=== PATIENT | female | born 2000 | race Caucasian/White ===

== ENCOUNTER 2019-05-09 22:30 | Emergency (ER) | payer SELFPAY ==
[~2019-05-09] VITALS: Ht 162.6 cm; Wt 81.1 kg
[2019-05-09] MEDS ORDERED: PRED-220 PO (22:55)
--- NOTE | 2019-05-09 22:55 | PHYS DOC ---
Adult General Chief Complaint Chief Complaint: ITCHING HPI HPI 19-year-old female presents with itching and rash all over. The patient started to have some minor itching and erythematous rash on her legs this morning around 10 AM, 12 hours ago. It was not severe so she went to work. She now has small erythematous papules on her bilateral lower extremities, abdomen, and back. The itching is much worse so she decided to come in for evaluation. She has had no difficulty swallowing or breathing at any time. Patient has no known allergies. She denies any new exposures. Denies fever or chills. Denies any drug use. Review of Systems Review of Systems Constitutional: Denies fever or chills [] Eyes: Denies change in visual acuity, redness, or eye pain [] HENT: Denies nasal congestion or sore throat [] Respiratory: Denies cough or shortness of breath [] Cardiovascular: No additional information not addressed in HPI [] GI: Denies abdominal pain, nausea, vomiting, bloody stools or diarrhea [] : Denies dysuria or hematuria [] Musculoskeletal: Denies back pain or joint pain [] Integument: Rash[] Neurologic: Denies headache, focal weakness or sensory changes [] Endocrine: Denies polyuria or polydipsia [] All other systems were reviewed and found to be within normal limits, except as documented in this note. Current Medications Current Medications Current Medications Medications (Trade) Dose Ordered Sig/Justus Start Time Stop Time Status Last Admin Dose Admin Diphenhydramine HCl (Benadryl) 50 mg 1X ONCE 05/09/19 23:00 05/09/19 23:01 Methylprednisolone Sodium Succinate (SOLU-Medrol 125MG VIAL) 125 mg 1X ONCE 05/09/19 23:00 05/09/19 23:01 Sodium Chloride 1,000 ml @ 1,000 mls/hr 1X ONCE 05/09/19 23:00 05/09/19 23:59 Allergies Allergies Allergies Coded Allergies Type Severity Reaction Last Updated Verified No Known Drug Allergies 05/09/19 No Physical Exam Physical Exam Constitutional: Well developed, well nourished, no acute distress, non-toxic appearance. [] HENT: Normocephalic, atraumatic, bilateral external ears normal, oropharynx moist, no oral exudates, nose normal. [] Eyes: PERRLA, EOMI, conjunctiva normal, no discharge. [] Neck: Normal range of motion, no tenderness, supple, no stridor. [] Cardiovascular:Heart rate regular rhythm, no murmur [] Lungs & Thorax: Bilateral breath sounds clear to auscultation [] Abdomen: Bowel sounds normal, soft, no tenderness, no masses, no pulsatile masses. [] Skin: Erythematous papules on the bilateral lower extremities, lower abdomen, and lower back with excoriations from scratching. Consistent with allergic reaction.[] Back: No tenderness, no CVA tenderness. [] Extremities: No tenderness, no cyanosis, no clubbing, ROM intact, no edema. [] Neurologic: Alert and oriented X 3, normal motor function, normal sensory function, no focal deficits noted. [] Psychologic: Affect normal, judgement normal, mood normal. [] EKG EKG [] Radiology/Procedures Radiology/Procedures [] Course & Med Decision Making Course & Med Decision Making Pertinent Labs and Imaging studies reviewed. (See chart for details) This appears to be an allergic reaction to something. I have ordered 20 mg of Pepcid IV, 1 L normal saline, 125 mg Solu-Medrol IV, and 50 mg of Benadryl IV. Patient's rash has improved. I will discharge her on 40 mg of prednisone for the next 3 days. She will use Benadryl as needed. She is stable for discharge at this time. [] Dragon Disclaimer Dragon Disclaimer This electronic medical record was generated, in whole or in part, using a voice recognition dictation system. Departure Departure: Impression: Primary Impression: Allergic reaction Disposition: 01 HOME, SELF-CARE Condition: IMPROVED Referrals: [facility] (PCP) Patient Instructions: Allergies, Generic Scripts Prednisone (PREDNISONE) 10 Mg Tablet 40 MG PO DAILY for allergic reaction for 3 Days, #12 TAB Prov: SANTO PERRY DO 05/09/19 SANTO PERRY DO May 09, 2019 22:55
[2019-05-09] MEDS ORDERED: IV NORMAL SALINE 1,000ML 1,000 ML IV ONE (23:00)
[2019-05-09] MEDS ORDERED: methylPREDNISolone SOD SUCC PF 125 MG/2 ML VIAL. IV ONE (23:00)
[2019-05-09] MEDS ORDERED: diphenhydrAMINE 50 MG/ML VIAL IVP ONE (23:00)
[2019-05-09] MEDS ORDERED: FAMOTIDINE 20 MG/2 ML VIAL IVP ONE (23:30)
[2019-05-09 23:56] LABS: BASO % 0 % (0-3); EOS % 1 % (0-3); HEMATOCRIT 38.7 % (36.0-47.0); HEMOGLOBIN 13.5 g/dL (12.0-15.5); LYMPH # 3.1 x10^3/uL (1.0-4.8); LYMPH % 50 % (24-48); MEAN CORPUSCULAR HEMOGLOBIN 31 pg (25-35); MEAN CORPUSCULAR HGB CONC 35 g/dL (31-37); MEAN CORPUSCULAR VOLUME 90 fL (79-100); MONO # 0.5 x10^3/uL (0.0-1.1); MONO % 9 % (0-9); NEUT # 2.6 x10^3uL (1.8-7.7); NEUT % 41 % (31-73); PLATELET COUNT 228 x10^3/uL (140-400); RED CELL DISTRIBUTION WIDTH 12.6 % (11.5-14.5); WHITE BLOOD COUNT 6.3 x10^3/uL (4.0-11.0)
[2019-05-10 00:05] LABS: CALCIUM 8.6 mg/dL (8.5-10.1); CREATININE 0.8 mg/dL (0.6-1.0); GFR 90.5; POTASSIUM 3.7 mmol/L (3.5-5.1)
[2019-05-10 00:12] LABS: ALBUMIN 3.7 g/dL (3.4-5.0); TOTAL BILIRUBIN 0.6 mg/dL (0.2-1.0); TOTAL PROTEIN 7.4 g/dL (6.4-8.2)
[2019-05-10 00:35] VITALS: BP 128/78
== END 2019-05-10 00:44 | disposition home or self-care (01) ==
LOC: ER 22:30
DX: T78.49XA Other allergy, initial encounter (principal); X58.XXXA Exposure to other specified factors, initial encounter
CPT/HCPCS: 36415; 80053; 85025; 96374; 96375; 99284; J1200; J2930; J3490; J7030

== ENCOUNTER 2020-04-03 09:03 | Emergency (ER) | payer OTHER ==
[~2020-04-03] VITALS: Ht 162.6 cm; Wt 90.7 kg
[2020-04-03 09:03] VITALS: BP 134/88
[~2020-04-03 09:03] MED LIST: PRED-220 PO
[2020-04-03] MEDS ORDERED: LIDOCAINE (700MG/PATCH) PATCH. TD ONE (09:49)
[2020-04-03] MEDS ORDERED: HYDR-3165 PO (10:11)
[2020-04-03] MEDS ORDERED: CYCL5TAB PO (10:24)
--- NOTE | 2020-04-03 10:27 | PHYS DOC ---
Past History Past Medical History: No Pertinent History Past Surgical History: No Surgical History Alcohol Use: None Drug Use: None General Adult EDM: Chief Complaint: BACK PAIN OR INJURY HPI: HPI: 20 yo F @ 32 weeks with no PMH, presents to the ed with w/atraumatic low back pain. Pt states she woke up around 5 AM this morning with nausea and dizziness, her typical morning sickness symptoms in , so she took a warm bath for approximately an hour (no antiemetics because they aggrevate her gerd). Upon lifting herself out of the tub she states she "felt a pop" in her sacral area/posterior low back and now has low back pain that radiates down her posterior right thigh, described as sharp in nature. Pain worsens with any movements, worse with hip flexion. No prior back injury or trauma. No associated vaginal bleeding, abdominal pain, saddle anesthesia, urinary or bowel retention or incontinence, sensory deficits or motor weakness. Ob with with OP Darren-Dr. Galaviz, normal care, no diabetes, preclampsia. Review of Systems: Review of Systems: Constitutional: Denies fever or chills Eyes: Denies change in visual acuity HENT: Denies nasal congestion or sore throat Respiratory: Denies cough or shortness of breath Cardiovascular: Denies chest pain or edema GI: Denies abdominal pain, or diarrhea : Denies dysuria, hematuria or vaginal bleeding Musculoskeletal: Denies CVA tenderness or joint pain Integument: Denies rash Neurologic: Denies headache, focal weakness or sensory changes Endocrine: Denies polyuria or polydipsia Lymphatic: Denies swollen glands Psychiatric: Denies depression or anxiety Current Medications: Current Meds: Current Medications Medications (Trade) Dose Ordered Sig/Justus Start Time Stop Time Status Last Admin Dose Admin Lidocaine (Lidoderm) 1 patch 1X ONCE 04/03/20 09:49 04/03/20 09:50 DC 04/03/20 09:59 1 PATCH Miscellaneous (Lidoderm Patch Removal) 1 ea QHS 04/03/20 21:00 Allergies: Allergies: Allergies Coded Allergies Type Severity Reaction Last Updated Verified No Known Drug Allergies 05/09/19 No Physical Exam: PE: Constitutional:, calm/no distress at rest when sitting on edge of stretcher, but seen getting into a wheelchair with significant pain/grimacing HENT: Normocephalic, atraumatic, Eyes: EOMI, conjunctiva normal, no discharge. Neck: Normal range of motion, supple, Cardiovascular: S1/2 present, regular rhythm Lungs & Thorax: Speaking in full sentences, bilateral equal chest rise, no tachypnea or increased work of breathing Abdomen: soft, no tenderness, gravid with fundus well above the umbilicus Skin: Warm, dry, no erythema, no rash. [] Back: Pain not reproduced with palpation but location is over her distal sacrum and coccyx and radiates to her right buttock and down her right thigh, straight leg positive on the right, no CVA tenderness. [] Extremities: No tenderness, no cyanosis, Neurologic: Alert and oriented X 3, normal motor function, normal sensory function, no focal deficits noted. [] Psychologic: Affect normal, judgement normal, mood normal. [] RN reported heart rate of 150 Current Patient Data: Vital Signs: Vital Signs Date Time Temp Pulse Resp B/P (MAP) Pulse Ox O2 Delivery O2 Flow Rate FiO2 04/03/20 09:03 98.6 84 16 134/88 (103) 98 Room Air EKG: EKG: [] Radiology/Procedures: Radiology/Procedures: [] Heart Score: Risk Factors: Risk Factors: DM, Current or recent (<one month) smoker, HTN, HLP, family history of CAD, obesity. Risk Scores: Score 0 - 3: 2.5% MACE over next 6 weeks - Discharge Home Score 4 - 6: 20.3% MACE over next 6 weeks - Admit for Clinical Observation Score 7 - 10: 72.7% MACE over next 6 weeks - Early Invasive Strategies Course & Med Decision Making: Course & Med Decision Making Pertinent Labs and Imaging studies reviewed. (See chart for details) Suspect atraumatic back pain with neuropathy likely sciatica. IM ketamine given in ED for pain. Will DC with drug class B Flexeril. Will discharge home with strict ED return precautions were given for vaginal bleeding, abdominal pain, saddle anesthesia, urinary or bowel retention or incontinence, sensory deficits, worsening/severe pain or motor weakness. Encouraged urgent outpatient follow-up with PMD and PL[employer]ING [employer]ATING MECH[employer]IC. Life-threatening processes were considered but are low suspicion at this time, given history, physical exam and ED workup. Pt was educated on all prescription medications and adverse effects. All patient's questions were answered and pt was stable at time of discharge. Life/limb-threatening differential includes but is not limited to, aortic dissection/aneurysm, cauda equina syndrome, transverse myelitis, spinal cord/epidural compression syndromes, discitis, spinal stenosis, epidural abscess or hematoma, osteomyelitis, disc herniation, surgical abdomen, stable or unstable fracture, renal/ureteral colic, sepsis, demise, placental abruption, uterus rupture, preeclampsia, eclampsia meningitis, musculoskeletal injury, traumatic injury, intraabdominal/retroperitoneal or pelvic bleeding. I spoken with the patient and her caregivers. I explained the patient's condition, diagnoses and treatment plan based on the information available to me at this time. I have answered the patient and her caregiver's questions and addressed any concerns. The patient and her caregivers have a good understanding of patient's diagnosis, condition and treatment plan as can be expected at this point. Vital signs have been stable. Patient's condition is stable and appropriate for discharge from the emergency department. Patient will pursue further outpatient evaluation with primary care physician or other designated or consulting physician as outlined in the discharge instructions. The patient and/or caregivers are agreeable to this plan of care and follow-up instructions have been explained in detail. The patient and/or c aregivers have received these instructions in written form and have expressed an understanding of the discharge instructions. The patient and/or caregivers are aware that any significant change of condition or worsening of symptoms should prompt immediate return to this or the closest emergency department or call to 911. Damian Disclaimer: Damian Disclaimer: This electronic medical record was generated, in whole or in part, using a voice recognition dictation system. Departure Departure: Impression: Primary Impression: Low back pain Additional Impression: Neuropathy of right lower extremity Disposition: 01 DC HOME SELF CARE/HOMELESS Condition: STABLE Referrals: PCP,NO (PCP) FOLLOW UP WITH FAMILY MEDICINE: Complete [facility], [facility] [address] [facility] [address] [place] [address], [facility] Instructions: Back Pain in , Pain, Neuropathic, Sciatica Additional Instructions: FOLLOW UP WITH OBGYN: [facility] [employer] [address], [place] [place] [address] EMERGENCY DEPARTMENT GENERAL DISCHARGE INSTRUCTIONS Thank you for coming to [facility] (ED) today and trusting us with you care. We trust that you had a positivie experience in our Emergency Department. If you wish to speak to the department management, you may call the director at [phone]. YOUR FOLLOW UP INSTRUCTIONS ARE FOLLOWS: 1. Do you have a private Doctor? If you do not have a private doctor, please ask for a resource list of physicians or clinics that may be able to assist you with follow up care. 2. The Emergency Physician has interpreted your x-rays. The X-Ray specialist will also review them. If there is a change in the findings, you will be notified in 48 hours when at all possible. 3. A lab test or culture has been done, your results will be reviewed and you will be notified if you need a change in treatment. ADDITIONAL INSTRUCTIONS AND INFORMATION: 1. Your care today has been supervised by a physician who is specially trained in emergency care. Many problems require more than one evaluation for a complete diagnosis and treatment. We recommend that you schedule your follow up appointment as recommended to ensure complete treatment of you illness or injury. If you are unable to obtain follow up care and continue to have a problem, or if your condition worsens, we recommend that you return to the ED. 2. We are not able to safely determine your condition over the phone nor are we able to give sound medical advice over the phone. For these safety reasons, if you call for medical advice we will ask you to come to the ED for further evaluation. 3. If you have any questions regarding these discharge instructions please call the ED at [phone]. SAFETY INFORMATION: In the interest of safety, wellness, and injury prevention; we encourage you to wear your sealbelt, if you smoke; quite smoking, and we encourage family to use a protective helmet for bicycling and other sporting events that present an increased risk for head injury. IF YOUR SYMPTOMS WORSEN OR NEW SYMPTOMS DEVELOP, OR YOU HAVE CONCERNS ABOUT YOUR CONDITION; OR IF YOUR CONDITION WORSENS WHILE YOU ARE WAITING FOR YOUR FOLLOW UP APPOINTMENT; EITHER CONTACT YOUR PRIMARY CARE DOCTOR, THE PHYSICIAN WHOSE NAME AND NUMBER YOU WERE GIVEN, OR RETURN TO THE ED IMMEDIATELY. Scripts Cyclobenzaprine Hcl (CYCLOBENZAPRINE HCL) 5 Mg Tablet 1 TAB PO TID for pain, #20 TAB Prov: YENI WILLINGHAM DO 04/03/20 [facility] Apr 03, 2020 10:26
[2020-04-03] MEDS ORDERED: KETAMINE HCL IN NACL, ISO-OSM 50 MG/5 ML SYRINGE IM ONE (10:30)
[2020-04-03] MEDS ORDERED: PATCH REMOVAL. MC SCH (21:00)
== END 2020-04-03 11:25 | disposition home or self-care (01) ==
LOC: ER 09:03
DX: O26.893 Other specified pregnancy related conditions, third trimester (principal); M54.5 Low back pain; G57.91 Unspecified mononeuropathy of right lower limb; R42 Dizziness and giddiness; Z3A.32 32 weeks gestation of pregnancy
CPT/HCPCS: 96372; 99283

== ENCOUNTER 2020-05-04 19:11 | Emergency (ER) | payer OTHER ==
[~2020-05-04] VITALS: Ht 162.6 cm; Wt 90.0 kg
[~2020-05-04 19:11] MED LIST changes: +CYCL5TAB PO; +HYDR-3165 PO
[2020-05-04 19:25] VITALS: BP 127/77
--- NOTE | 2020-05-04 20:00 | PHYS DOC ---
Past History Past Medical History: No Pertinent History Past Surgical History: No Surgical History Alcohol Use: None Drug Use: None General Adult EDM: Chief Complaint: VAGINAL PROBLEM HPI: HPI: Patient is a 20-year-old female who presents with vaginal discharge. Patient states she is 37 weeks , estimated due date is on 20 May. Reports that the discharge was clear with no consistency or odor. Patient denies abdominal pain or cramping. Patient has an CLIENT SUCCESS SPECIALIST she sees Dr. Ruiz Galaviz but was unable to reach them tonight. She denies nausea, vomiting, diarrhea. Denies medical history. "My mom told me I should come into the ER in case I was losing amniotic fluid". Review of Systems: Review of Systems: Constitutional: Denies fever or chills Eyes: Denies change in visual acuity HENT: Denies nasal congestion or sore throat Respiratory: Denies cough or shortness of breath Cardiovascular: Denies chest pain or edema GI: Denies abdominal pain, nausea, vomiting, bloody stools or diarrhea : Denies dysuria Musculoskeletal: Denies back pain or joint pain Integument: Denies rash Neurologic: Denies headache, focal weakness or sensory changes Endocrine: Denies polyuria or polydipsia Lymphatic: Denies swollen glands Psychiatric: Denies depression or anxiety Vaginal: Reports clear, odorless discharge Allergies: Allergies: Allergies Coded Allergies Type Severity Reaction Last Updated Verified No Known Drug Allergies 05/09/19 No Physical Exam: PE: Constitutional: Well developed, well nourished, no acute distress, non-toxic appearance. [] HENT: Normocephalic, atraumatic, bilateral external ears normal, oropharynx moist, no oral exudates, nose normal. [] Eyes: PERRLA, EOMI, conjunctiva normal, no discharge. [] Neck: Normal range of motion, no tenderness, supple, no stridor. [] Cardiovascular:Heart rate regular rhythm, no murmur [] Lungs & Thorax: Bilateral breath sounds clear to auscultation [] Abdomen: Bowel sounds normal, soft, no tenderness, no masses, no pulsatile masses. [] Skin: Warm, dry, no erythema, no rash. [] Back: No tenderness, no CVA tenderness. [] Extremities: No tenderness, no cyanosis, no clubbing, ROM intact, no edema. [] Neurologic: Alert and oriented X 3, normal motor function, normal sensory function, no focal deficits noted. [] Psychologic: Affect normal, judgement normal, mood normal. [] Current Patient Data: Vital Signs: Vital Signs Date Time Temp Pulse Resp B/P (MAP) Pulse Ox O2 Delivery O2 Flow Rate FiO2 05/04/20 19:25 98.7 85 16 127/77 (94) 99 Room Air EKG: EKG: [] Radiology/Procedures: Radiology/Procedures: []Limited OB ultrasound dated 1114 weeks 05/04/2020 CLINICAL HISTORY: Near-term . Clinical concern for low amniotic fluid. TECHNIQUE: A real-time ultrasound examination of the gravid uterus was performed. Multiple images were obtained. FINDINGS: No previous studies are available for comparison. There is a single living IUP. The fetus is in a cephalic position. cardiac and somatic activity is seen. The heart rate is 144 beats per minutes. The maternal cervix is well-visualized due to the position of the head. The placenta is posterior. No abnormality is seen. The amniotic fluid volume is within normal limits. The MICHAELLE measures 7.9 cm The following measurements were obtained: BPD 9.31cm 37 weeks 6 days HC 30 3. 2 a cm 38weeks 0 days AC 33.93 cm 37weeks 6 days FL 7.22 cm 37weeks 0 days The estimated gestational age by ultrasound is 37 weeks 5 days plus or minus a standard deviation of 21 days. The estimated date of delivery by ultrasound is 05/20/2020. The estimated weight is 3270 g (7 lbs. 3 oz.). Detailed evaluation of anatomy was not performed. Impression: Single living IUP with an estimated gestational age by ultrasound of 37 weeks5 days +/- a standard deviation of 21 days. The estimated weight is 3270 g. The amniotic fluid volume is within normal limits. The MICHAELLE is 7.9 cm . Electronically signed by: Sohail Adams MD (05/04/2020 8:40 PM) [id number] Heart Score: Risk Factors: Risk Factors: DM, Current or recent (<one month) smoker, HTN, HLP, family history of CAD, obesity. Risk Scores: Score 0 - 3: 2.5% MACE over next 6 weeks - Discharge Home Score 4 - 6: 20.3% MACE over next 6 weeks - Admit for Clinical Observation Score 7 - 10: 72.7% MACE over next 6 weeks - Early Invasive Strategies Course & Med Decision Making: Course & Med Decision Making Pertinent Labs and Imaging studies reviewed. (See chart for details) []Patient is a 20-year-old female who presents with vaginal discharge. Patient states she is 37 weeks , estimated due date is on 20 May. Reports that the discharge was clear with no consistency or odor. Patient denies abdominal pain or cramping. Patient has an CLIENT SUCCESS SPECIALIST she sees Dr. Ruiz Galaviz but was unable to reach them tonight. She denies nausea, vomiting, diarrhea. Denies medical history. "My mom told me I should come into the ER in case I was losing amniotic fluid". Amniotic fluid negative. US ordered to r/o abnormal amniotic fluid levels. UA ordered. UA showed asymptomatic bacteriuria. Keflex ordered for patient. US shows Single living IUP with an estimated gestational age by ultrasound of 37 weeks5 days +/- a standard deviation of 21 days. The estimated weight is 3270 g. The amniotic fluid volume is within normal limits. The MICHAELLE is 7.9 cm Patient to follow up with OB tomorrow for further evaluation. Damian Disclaimer: [email or web address] Disclaimer: This electronic medical record was generated, in whole or in part, using a voice recognition dictation system. Departure Departure: Impression: Primary Impression: Asymptomatic bacteriuria Disposition: 01 DC HOME SELF CARE/HOMELESS Condition: GOOD Referrals: PCP,UNKNOWN (PCP) Patient Instructions: Asymptomatic Bacteriuria, Female Additional Instructions: You were seen in the emergency room today for concerns of vaginal discharge. Amniotic fluid is negative. Your urine showed bacteriuria. I have ordered you an antibiotic to take. Please take as prescribed. If you have worsening symptoms or concern you may return to the ED. Otherwise, I would call you OB tomorrow and follow up with him if advised. EMERGENCY DEPARTMENT GENERAL DISCHARGE INSTRUCTIONS Thank you for coming to [facility] (ED) today and trusting us with you care. We trust that you had a positivie experience in our Emergency Department. If you wish to speak to the department management, you may call the director at [phone]. YOUR FOLLOW UP INSTRUCTIONS ARE FOLLOWS: 1. Do you have a private Doctor? If you do not have a private doctor, please ask for a resource list of physicians or clinics that may be able to assist you with follow up care. 2. The Emergency Physician has interpreted your x-rays. The X-Ray specialist will also review them. If there is a change in the findings, you will be notified in 48 hours when at all possible. 3. A lab test or culture has been done, your results will be reviewed and you will be notified if you need a change in treatment. ADDITIONAL INSTRUCTIONS AND INFORMATION: 1. Your care today has been supervised by a physician who is specially trained in emergency care. Many problems require more than one evaluation for a complete diagnosis and treatment. We recommend that you schedule your follow up appointment as recommended to ensure complete treatment of you illness or injury. If you are unable to obtain follow up care and continue to have a problem, or if your condition worsens, we recommend that you return to the ED. 2. We are not able to safely determine your condition over the phone nor are we able to give sound medical advice over the phone. For these safety reasons, if you call for medical advice we will ask you to come to the ED for further evaluation. 3. If you have any questions regarding these discharge instructions please call the ED at [phone]. SAFETY INFORMATION: In the interest of safety, wellness, and injury prevention; we encourage you to wear your sealbelt, if you smoke; quite smoking, and we encourage family to use a protective helmet for bicycling and other sporting events that present an increased risk for head injury. IF YOUR SYMPTOMS WORSEN OR NEW SYMPTOMS DEVELOP, OR YOU HAVE CONCERNS ABOUT YOUR CONDITION; OR IF YOUR CONDITION WORSENS WHILE YOU ARE WAITING FOR YOUR FOLLOW UP APPOINTMENT; EITHER CONTACT YOUR PRIMARY CARE DOCTOR, THE PHYSICIAN WHOSE NAME AND NUMBER YOU WERE GIVEN, OR RETURN TO THE ED IMMEDIATELY. Scripts Cephalexin (KEFLEX) 750 Mg Capsule 500 MG PO BID for bacteriuria for 5 Days, #7 CAP Prov: VERO ESPINOSA GLASSWARE MAKER 05/04/20 VERO ESPINOSA APRN May 04, 2020 20:00
[2020-05-04 20:27] LABS: BILIRUBIN,URINE NEG (NEG); CLARITY,URINE CLEAR; COLOR,URINE YELLOW; GLUCOSE,URINE NEG (NEG); NITRITE,URINE NEG (NEG); UROBILINOGEN,URINE 0.2 mg/dL (0.2 mg/dL)
[2020-05-04 20:28] LABS: BACTERIA,URINE FEW /HPF (0-FEW); RBC,URINE OCC /HPF (0-2); SQUAMOUS EPITHELIAL CELL,UR FEW /LPF; WBC,URINE OCC /HPF (0-4)
--- NOTE | 2020-05-04 20:42 | RAD ---
Limited OB ultrasound dated 1114 weeks 05/04/2020 CLINICAL HISTORY: Near-term . Clinical concern for low amniotic fluid. TECHNIQUE: A real-time ultrasound examination of the gravid uterus was performed. Multiple images wer e obtained. FINDINGS: No previous studies are available for comparison. There is a single living IUP. The fetus is in a cephalic position. cardiac and somatic activity is seen. The heart rate is 144 beats per minutes. The matern al cervix is well-visualized due to the position of the head. The placenta is posterior. No abn ormality is seen. The amniotic fluid volume is within normal limits. The MICHAELLE measures 7.9 cm The following measurements were obtained: BPD 9.31cm 37 weeks 6 days HC 30 3. 2 a cm 38weeks 0 days AC 33.93 cm 37weeks 6 days FL 7.22 cm 37weeks 0 days The estimated gestational age by ultrasound is 37 weeks 5 days plus or minus a standard deviation of 21 days. The estimated date of delivery by ultrasound is 05/20/2020. The estimated weight is 327 0 g (7 lbs. 3 oz.). Detailed evaluation of anatomy was not performed. Impression: Single living IUP with an estimated gestational age by ultrasound of 37 weeks5 days +/- a standard deviation of 21 days. The estimated weight is 3270 g. The amniotic fluid volume is wi thin normal limits. The MICHAELLE is 7.9 cm . Electronically signed by: Sohail Adams MD (05/04/2020 8:40 PM) [id number]
[2020-05-04] MEDS ORDERED: CEPH750C9 PO (20:58)
== END 2020-05-04 21:07 | disposition home or self-care (01) ==
LOC: ER 19:11
DX: O26.893 Other specified pregnancy related conditions, third trimester (principal); R82.71 Bacteriuria; O46.93 Antepartum hemorrhage, unspecified, third trimester; Z3A.37 37 weeks gestation of pregnancy
CPT/HCPCS: 76815; 81001; 96365; 96372; 96375; 99284; P9612; 99285-25

== ENCOUNTER 2020-08-12 20:03 | Emergency (ER) | payer OTHER ==
[~2020-08-12] VITALS: Ht 162.6 cm; Wt 90.0 kg
[~2020-08-12 20:03] MED LIST changes: +CEPH750C9 PO
[2020-08-12] MEDS ORDERED: DEXAMETHASONE SOD PHOS 10 MG/ML VIAL. PO ONE (21:00)
[2020-08-12] MEDS ORDERED: ACETAMINOPHEN 500 MG TABLET PO ONE (21:00)
[2020-08-12] MEDS ORDERED: IBUPROFEN 800 MG TABLET. PO ONE (21:15)
[2020-08-12 21:42] VITALS: BP 121/63
[2020-08-12] MEDS ORDERED: AMOX500C PO (22:04)
--- NOTE | 2020-08-12 22:05 | PHYS DOC ---
Past History Past Medical History: No Pertinent History Past Surgical History: No Surgical History Alcohol Use: None Drug Use: None Adult General Chief Complaint Chief Complaint: SORE THROAT HPI HPI Patient is a 20-year-old female who presents with sore throat. States she has had it for about 4 days and had associated intermittent whole head headache. States she had a temperature of 100 yesterday but exercises gotten. Denies chest pain, shortness of breath, abdominal pain, nausea, vomiting. States she went to another emergency department yesterday and nothing was done outside of Covid and strep testing which were both negative. States she still having a sore throat, 6 out of 10, dull and achy in nature. States she is still able to eat and drink however. Review of Systems Review of Systems Review of systems otherwise unremarkable except noted in HPI Current Medications Current Medications Current Medications Medications (Trade) Dose Ordered Sig/Justus Start Time Stop Time Status Last Admin Dose Admin Acetaminophen (Tylenol) 1,000 mg 1X ONCE 08/12/20 21:00 08/12/20 21:01 DC 08/12/20 21:15 1,000 MG Dexamethasone Sodium Phosphate (Decadron) 10 mg 1X ONCE 08/12/20 21:00 08/12/20 21:06 DC 08/12/20 21:15 10 MG Ibuprofen (Motrin) 800 mg 1X ONCE 08/12/20 21:15 08/12/20 21:16 DC 08/12/20 21:16 800 MG Allergies Allergies Allergies Coded Allergies Type Severity Reaction Last Updated Verified No Known Drug Allergies 05/09/19 No Physical Exam Physical Exam Constitutional: Well developed, well nourished, no acute distress, non-toxic appearance. [] HENT: Normocephalic, atraumatic, bilateral external ears normal, oropharynx moist with bilateral erythema and no edema, no oral exudates, no signs of peritonsillar abscess, nose normal. [] Eyes:conjunctiva normal, no discharge. [] Neck: Normal range of motion, no tenderness, supple, no stridor. [] Cardiovascular:Heart rate regular rhythm, no murmur [] Lungs & Thorax: Bilateral breath sounds clear to auscultation [] Skin: Warm, dry, no erythema, no rash. [] Neurologic: Alert and oriented X 3, normal motor function, normal sensory function, no focal deficits noted. [] Psychologic: Affect normal, judgement normal, mood normal. [] Current Patient Data Vital Signs Vital Signs Date Time Temp Pulse Resp B/P (MAP) Pulse Ox O2 Delivery O2 Flow Rate FiO2 08/12/20 21:42 97 16 121/63 (82) 98 08/12/20 20:25 99.5 EKG EKG [] Radiology/Procedures Radiology/Procedures [] Heart Score C/O Chest Pain: No Risk Factors: Risk Factors: DM, Current or recent (<one month) smoker, HTN, HLP, family hist ory of CAD, obesity. Risk Scores: Risk Factors: DM, Current or recent (<one month) smoker, HTN, HLP, family history of CAD, obesity. Course & Med Decision Making Course & Med Decision Making Patient is a 20-year-old female presents with sore throat Vital signs notable for mild tachycardia to 105. Physical exam noted above. Given pain medication and steroids. Given Centor criteria, patient likely has strep pharyngitis. Started on antibiotics in the emergency department. Advised on pain control at home. Advised to call primary physician first thing Saturday to set up a follow-up appointment. Gave return precautions to the ED. Patient grateful, verbalized understanding and agreed with plan of discharge. [] Dragon Disclaimer Dragon Disclaimer This electronic medical record was generated, in whole or in part, using a voice recognition dictation system. Departure Departure: Impression: Primary Impression: Strep pharyngitis Disposition: HOME / SELF CARE / HOMELESS Condition: GOOD Referrals: PCP,UNKNOWN (PCP) Patient Instructions: Strep Throat, [id number] Additional Instructions: Please read all the attached information. Please take your antibiotics as prescribed. Please call your primary care physician first thing Saturday morning to discuss your ED visit and set up a follow-up as discussed. You can use Tylenol, and ibuprofen at home as needed. You can also use Cepacol lozenges as discussed. Please come back to the ED with new or concerning symptoms as discussed. Scripts Amoxicillin (AMOXICILLIN) 500 Mg Capsule 1 CAP PO BID for strep throat for 10 Days, #19 CAP Prov: ESTEFANIA HANDLEY MD 08/12/20 ESTEFANIA HANDLEY MD Aug 12, 2020 22:05
[2020-08-12] MEDS ORDERED: AMOXICILLIN 250 MG CAPSULE PO ONE (22:30)
== END 2020-08-12 22:14 | disposition home or self-care (01) ==
LOC: ER 20:03
DX: J02.0 Streptococcal pharyngitis (principal)
CPT/HCPCS: 99284; J1100

== ENCOUNTER 2021-04-14 15:46 | Emergency (ER) | payer OTHER ==
[~2021-04-14] VITALS: Ht 162.6 cm; Wt 90.0 kg
[~2021-04-14 15:46] MED LIST changes: +AMOX500C PO
[2021-04-14 17:28] VITALS: BP 121/63
--- NOTE | 2021-04-14 17:57 | PHYS DOC ---
Past History Past Medical History: No Pertinent History Past Surgical History: No Surgical History Alcohol Use: None Drug Use: None Adult General Chief Complaint Chief Complaint: EYE PROBLEMS HPI HPI Patient is a 21-year-old female patient presenting to the ED today stating she took a nap and woke up and noted a blister on her left eyeball. She states she came to the ED to be seen right away. She states while in the waiting room the blister was gone. Denies any vision loss. Review of Systems Review of Systems Constitutional: Denies fever or chills [] Eyes: Reports blister to the left eyeball. denies change in visual acuity, redness, or eye pain [] Musculoskeletal: Denies back pain or joint pain [] Integument: Denies rash or skin lesions [] Neurologic: Denies headache, focal weakness or sensory changes [] All other systems were reviewed and found to be within normal limits, except as documented in this note. Allergies Allergies Allergies Coded Allergies Type Severity Reaction Last Updated Verified No Known Drug Allergies 05/09/19 No Physical Exam Physical Exam Constitutional: Well developed, well nourished, no acute distress, non-toxic appearance. [] Eyes: PERRLA, EOMI, conjunctiva normal, no discharge. No blister noted on physical exam. Skin: Warm, dry, no erythema, no rash. [] Extremities: No tenderness, no cyanosis, no clubbing, ROM intact, no edema. [] Neurologic: Alert and oriented X 3, normal motor function, normal sensory function, no focal deficits noted. [] EKG EKG [] Radiology/Procedures Radiology/Procedures [] Heart Score C/O Chest Pain: N/A Risk Factors: Risk Factors: DM, Current or recent (<one month) smoker, HTN, HLP, family history of CAD, obesity. Risk Scores: Risk Factors: DM, Current or recent (<one month) smoker, HTN, HLP, family history of CAD, obesity. Course & Med Decision Making Course & Med Decision Making Pertinent Labs and Imaging studies reviewed. (See chart for details) This is a 21-year-old male patient presented to the ED today stating she noted a blister on her left eyeball when she woke up today from a nap. Physical exam is benign. She was discharged to home. Provided instructions to follow-up with product promoter retail pet Damian Disclaimer Dragon Disclaimer This electronic medical record was generated, in whole or in part, using a voice recognition dictation system. Departure Departure: Impression: Primary Impression: Eye exam normal Disposition: HOME / SELF CARE / HOMELESS Condition: STABLE Referrals: ANIYA BREWER (PCP) follow up next week Patient Instructions: Eye Foreign Body-[facility] Additional Instructions: Your eye was examined and there is no acute findings noted. Please follow-up with an product promoter retail pet in 1 week MARGARITA CHO APRN Apr 14, 2021 17:57
== END 2021-04-14 18:05 | disposition home or self-care (01) ==
LOC: ER 15:46
DX: H57.89 Other specified disorders of eye and adnexa (principal)
CPT/HCPCS: 99281